=== PATIENT | male | born 1965 | race Caucasian/White ===

== ENCOUNTER 2016-10-08 11:31 | Emergency (ER) | payer SELFPAY ==
[2016-10-08 12:10] LABS: #Basophils 0.1 thou/uL (0.0-0.2); #Eosinphils 0.2 thou/uL (0.0-0.7); #Lymphocytes 2.4 thou/uL (1.20-3.40); #Monocytes 0.6 thou/uL (0.11-0.59); #Neutrophils 5.3 thou/uL (1.40-6.50); %Basophils 1.1 % (0.0-1.0); %Eosinophils 2.5 % (0.0-10.0); %Lymphocytes 27.6 % (21.0-51.0); %Monocytes 6.9 % (0.0-10.0); Hematocrit 47.4 % (42.0-52.0); Mean Platelet Volume 7.8 fL (7.4-10.4); Red Blood Cell (RBC) Count 5.28 mill/uL (4.70-6.10); White Blood Cell (WBC) Count 8.6 thou/uL (4.8-10.8)
[2016-10-08 12:28] LABS: ALT (SGPT) 25 U/L (0-55); AST (SGOT) 19 U/L (5-34); Alkaline Phosphatase 63 U/L (40-150); Anion Gap 15 mmol/L (10-20); BUN (Urea Nitrogen) 13 mg/dL (8.4-25.7); Bilirubin, Total 0.5 mg/dL (0.2-1.2); Calc. Creatinine Clearance 0 mL/min (70-130); Calcium 8.8 mg/dL (7.8-10.44); Carbon Dioxide 21 mmol/L (22-29); Chloride 105 mmol/L (98-107); Estimated GFR-MDRD 78; Globulin 2.9 g/dL (2.4-3.5); Protein, Total 6.8 g/dL (6.0-8.3)
[2016-10-08 12:29] LABS: Troponin I Less than 0.010 ng/mL (< 0.028)
--- NOTE | 2016-10-08 12:30 | RAD ---
PORTABLE AP CHEST: Date: 10-08-16 History: Wheezing. Patient feels lightheaded. FINDINGS: Cardiac silhouette and pulmonary vasculature are within normal limits. Lungs are clear. Osseous st ructures are intact. There is bilateral glenohumeral osteoarthropathy present. IMPRESSION: No acute cardiopulmonary process. POS: [facility]
--- NOTE | 2016-10-08 12:49 | ERRECORD ---
[facility] EMERGENCY RECORD HPI SHORTNESS OF BREATH (12:16 SHAN) CHIEF COMPLAINT: Patient presents for evaluation of shortness of breath, Patient presents for evaluation of for a couple of days. HISTORIAN: History provided by patient, started Lopressor recently. SEVERITY: Maximum severity of symptoms moderate, Currently symptoms are moderate. TIME COURSE: Symptoms are worsening. ASSOCIATED WITH: Associated with dyspnea on exertion. EXACERBATED BY: Patient's condition exacerbated by nothing. RELIEVED BY: Patient's condition relieved by nothing. ROS (12:17 SHAN) CONSTITUTIONAL: Negative constitutional review of systems. EYES: Negative eye review of systems. ENT: Negative ears, nose, throat review of systems. CARDIOVASCULAR: Negative cardiovascular review of systems. RESPIRATORY: Historian reports shortness of breath. GI: Negative gastrointestinal review of systems. MUSCULOSKELETAL: Negative musculoskeletal review of systems. SKIN: Negative skin review of systems. NEUROLOGIC: Negative neurologic review of systems. NOTES: All systems reviewed, negative except as described above. PAST MEDICAL HISTORY (11:45 MSPE) MEDICAL HISTORY: Notes: bilat shoulder pain, Flu vaccine not up to date, Tetanus immunization up to date, Pneumococcal vaccine not up to date, Past medical history includes cardiac history, coronary artery disease, Treated with angioplasty, Past medical history includes history of hypertension. MALE SURGICAL HISTORY: bilateral knee scopes. PSYCHIATRIC HISTORY: No previous psychiatric history. SOCIAL HISTORY: Patient denies alcohol use, Patient denies drug use, Patient currently uses tobacco, smokes cigarettes, Patient smokes 1 pack per day. KNOWN ALLERGIES No Known Drug Allergies CURRENT MEDICATIONS lisinopril: TABLET : Strength - 20 mg : ORAL Patient Dose: 1 tab(s) Oral 2 times a day. (11:42 MSPE) Lopressor: TABLET : Strength - 50 mg : ORAL Patient Dose: unk Oral once a day. (11:42 MSPE) Tylenol-Codeine #3: TABLET : Strength - 300 mg-30 mg : ORAL Patient Dose: Oral As Needed.for shoulder pain. (11:43 &a-1R&a+25V*p+0X*u8434H*c202B*c15G*c2P*p-0X&a-25V&a+1R Name: Cayetano Pedroza : 1965 M51 MedRec: [id number] AcctNum: [id number] Prepared: Marla Oct 08, 2016 13:05 by Interface Page 1 of 3 pMD [facility] EMERGENCY RECORD MSPE) VITAL SIGNS VITAL SIGNS: BP: 140/75, Pulse: 96, Resp: 18, Temp: 99.0 (Oral), Pain: 2, O2 sat: 94 on Room Air, Time: 10/08/2016 11:39. (11:39 MSPE) BP: 126/64, Pulse: 94, Resp: 17, O2 sat: 94 on Room Air, Time: 10/08/2016 12:00. (12:00 MSPE) BP: 152/82, Pulse: 93, Resp: 19, Pain: 2, O2 sat: 94 on Room Air, Time: 10/08/2016 12:44. (12:44 MSPE) PHYSICAL EXAM (12:17 SHAN) CONSTITUTIONAL: Patient afebrile, Pulse normal, Blood pressure normal, Respiratory rate normal, Normal pulse oximetry, Patient appears non toxic, Patient appears pain free, Patient alert and oriented to person, place and time, Nursing notes reviewed. HEAD: Head exam included findings of head atraumatic, normocephalic. EYES: Eye exam included findings of eyelids normal to inspection, Pupils equally round and reactive to light, Extraocular muscles intact. ENT: Pharynx exam normal, Uvula exam normal, Tonsil exam normal. NECK: Neck exam included findings of normal range of motion, Trachea midline. RESPIRATORY CHEST: Diffuse moderate wheezing. CARDIOVASCULAR: Cardiovascular exam included findings of heart rate regular rate and rhythm, Heart sounds normal. ABDOMEN MALE: Abdominal exam included findings of abdomen nontender, Bowel sounds normal. BACK: Back exam normal. UPPER EXTREMITY: Upper extremity exam included findings of inspection normal, Range of motion normal. NEURO: Neuro exam normal. SKIN: Skin exam normal. MEDICATION ADMINISTRATION SUMMARY Drug Name: albuterol sulfate inhalation, Dose Ordered: 2.5 mg, Route: Nebulize, Status: Given, Time: 11:55 10/08/2016, Drug Name: ipratropium 0.5 mg by nebulizer, Dose Ordered: * , Route: Nebulize, Status: Given, Time: 11:55 10/08/2016, Detailed record available in Medication Service section. PROBLEM LIST No recorded problems DIAGNOSIS (12:44 SHAN) FINAL: PRIMARY: ACUTE BRONCHOSPASM, ADDITIONAL: ESSENTIAL PRIMARY HYPERTENSION, type 2 diabetes, new dx. PRESCRIPTION &a-1R&a+25V*p+0X*x6824G*c202B*c15G*c2P*p-0X&a-25V&a+1R Name: Cayetano Pedroza : 1965 M51 MedRec: [id number] AcctNum: [id number] Prepared: WedOct 08, 2016 13:05 by Interface Page 2 of 3 pMD [facility] EMERGENCY RECORD Norvasc: TABLET : 5 mg : ORAL : Quantity: 1 Unit: tab(s) Route: ORAL Schedule: Dispense: 30 Unit: tab(s) May substitute. Refills: No Refills . (12:38 SHAN) NOTES: No Refills. (12:38 SHAN) albuterol sulfate inhalation: HFA AEROSOL WITH ADAPTER (GRAM) : 90 mcg : INHALATION : Quantity: 2 Unit: inhalation Route: INHALATION Schedule: every 4 hours prn Dispense: 1 Unit: units May substitute. Refills: No Refills . (12:38 SALINA) NOTES: No Refills. (12:38 SHAN) metFORMIN: TABLET : 500 mg : ORAL : Quantity: 1 Unit: tab(s) Route: ORAL Schedule: 2 times a day (before meals) Dispense: 60 Unit: tab(s) May substitute. Refills: 2 . (12:40 SALINA) NOTES: No Refills. (12:40 SALINA) DISPOSITION PATIENT: Disposition Type: Discharge, Disposition: *Discharge Home. (12:44 SALINA) Patient left the department. (12:59 MSPE) Meadows: JOEY=MULU Riggins, Merlene DOWNING=MD Bina, Damien &a-1R&a+25V*p+0X*[id number]*c202B*c15G*c2P*p-0X&a-25V&a+1R Name: Cayetano Pedroza : 1965 M51 MedRec: [id number] AcctNum: [id number] Prepared: Marla Oct 08, 2016 13:05 by Interface Page 3 of 3 pMD [facility]TDD
--- NOTE | 2016-10-08 12:55 | PICIS ---
[facility] EMERGENCY RECORD TRIAGE (WedOct 08, 2016 11:37 MSPE) PATIENT: NAME: Cayetano Pedroza, AGE: 51, GENDER: male, : Wed1965, TIME OF GREET: WedOct 08, 2016 11:32, ECODE BILLING MAP: [facility], Zip Code: [address], KG WEIGHT: 96.62, PHONE: , , , PERSON ID: [id number], PCP: Carissa Harrington, /[place]. TRIAGE NOTES: sts "can't catch my breath all day"; feels lightheaded; rt side JACKSON. COMPLAINT: CANT CATCH BREATH. ADMISSION: URGENCY: 3 Urgent, ADMISSION SOURCE: Home, TRANSPORT: CAR, BED: ER -05. PROVIDERS: TRIAGE NURSE: Merlene Riggins RN. KNOWN ALLERGIES No Known Drug Allergies CURRENT MEDICATIONS lisinopril: TABLET : Strength - 20 mg : ORAL Patient Dose: 1 tab(s) Oral 2 times a day. (11:42 MSPE) Lopressor: TABLET : Strength - 50 mg : ORAL Patient Dose: unk Oral once a day. (11:42 MSPE) Tylenol-Codeine #3: TABLET : Strength - 300 mg-30 mg : ORAL Patient Dose: Oral As Needed.for shoulder pain. (11:43 MSPE) VITAL SIGNS VITAL SIGNS: BP: 140/75, Pulse: 96, Resp: 18, Temp: 99.0 (Oral), Pain: 2, O2 sat: 94 on Room Air, Time: 10/08/2016 11:39. (11:39 MSPE) BP: 126/64, Pulse: 94, Resp: 17, O2 sat: 94 on Room Air, Time: 10/08/2016 12:00. (12:00 MSPE) BP: 152/82, Pulse: 93, Resp: 19, Pain: 2, O2 sat: 94 on Room Air, Time: 10/08/2016 12:44. (12:44 MSPE) NURSING ASSESSMENT: RESPIRATORY /CHEST (11:50 MSPE) CONSTITUTIONAL: Patient arrives ambulatory, Gait steady, History obtained from patient, Patient cooperative, Patient alert, Oriented to person, place and time, Skin warm, Skin dry, Skin normal in color. PAIN: c/o slight right side JACKSON. RESPIRATORY/CHEST: Lungs auscultated, Breath sounds with wheezing, to the left upper lobe, to the right upper lobe, Respiratory assessment findings include respiratory effort, mildly labored, Respirations regular, Conversing normally, Associated with cough, dry, Notes: pt reports having difficulty breathing while at work this a.m. Sts he woke up "feeling fine". Also c/o feeling lightheaded. &a-1R&a+25V*p+0X*p0724L*c202B*c15G*c2P*p-0X&a-25V&a+1R Name: Cayetano Pedroza : 1965 M51 MedRec: [id number] AcctNum: [id number] Prepared: Marla Oct 08, 2016 13:11 by Interface Page 1 of 7 pMD [facility] EMERGENCY RECORD NOTES: Notes: reports recent change in medication per his PCP. NURSING PROCEDURE: BEDSIDE RADIOLOGY (12:01 CCRI) BEDSIDE RADIOLOGY: Bedside radiology performed by CC, Portable chest x-ray performed. NURSING PROCEDURE: DISCHARGE NOTE (12:55 MSPE) DISCHARGE: Patient discharged to home, ambulating without assistance, unaccompanied, Summary of Care printed/ provided, Discharge instructions given to patient, Simple or moderate discharge teaching performed, Prescriptions given and instructions on side effects given, Above person(s) verbalized understanding of discharge instructions and follow-up care, Patient treated and evaluated by physician. BELONGINGS: Belongings remain with patient. NURSING PROCEDURE: EKG CHART (11:51 MSPE) EKG: EKG indicated for SOB, 12 lead EKG performed on the left chest. FOLLOW-UP: After procedure, EKG for interpretation given to Dr. Rafael bal. NURSING PROCEDURE: IV IV SITE 1: IV therapy indicated for hydration, IV therapy indicated for medication administration, IV established, to the right hand, using a 20 gauge catheter, in one attempt, IV site prepped with Chloraprep, Saline lock established, Flushed with normal saline (mls): 10, Labs drawn at time of placement, labeled in the presence of the patient and sent to lab. (12:03 MSPE) FOLLOW-UP SITE 1: After procedure, 2x2 dressing applied, IV discontinued, due to patient being discharged, catheter intact. (12:52 MSPE) NURSING PROCEDURE: NURSE NOTES (12:50 MSPE) NURSES NOTES: Notes: Pt feeling better; sts no longer feels lightheaded; BS much more clear to auscultation. ORDER DETAILS Order Name: B type Natriuretic Peptide, Status: Active, Time: 11:45 10/08/2016, User: SALINA, - Ordered for: MD Curran Stanley, - Entered by: MD Curran Stanley - Marla Oct 08, 2016 11:45, - Quantity: 1, Order Name: HEALTH SERVICES ADMINISTRATOR ED, Status: Done, Time: 12:06 10/08/2016, User: JOEY, - Ordered for: MD Curran Stanley, - Entered by: MD Curran Stanley - Marla Oct 08, 2016 11:46, - Quantity: 1, &a-1R&a+25V*p+0X*d4536T*c202B*c15G*c2P*p-0X&a-25V&a+1R Name: Cayetano Pedroza : 1965 M51 MedRec: [id number] AcctNum: [id number] Prepared: WedOct 08, 2016 13:11 by Interface Page 2 of 7 pMD [facility] EMERGENCY RECORD Order Name: CBC with Differential, Status: Active, Time: 11:45 10/08/2016, User: SALINA, - Ordered for: MD Curran Stanley, - Entered by: MD Curran Stanley - Marla Oct 08, 2016 11:45, - Quantity: 1, Order Name: Comprehensive Metabolic Panel, Status: Active, Time: 11:45 10/08/2016, User: SALINA, - Ordered for: MD Curran Stanley, - Entered by: MD Curran Stanley - Marla Oct 08, 2016 11:45, - Quantity: 1, Order Name: EKG 12 Lead in Emergency Room, Status: Active, Time: 11:46 10/08/2016, User: SALINA, - Ordered for: MD Curran Stanley, - Entered by: MD Curran Stanley - Marla Oct 08, 2016 11:46, - Quantity: 1, Order Name: ERRT * Smal Vol Neb Initial Trmt, Status: Active, Time: 11:56 10/08/2016, User: JOEY, - Ordered for: MD Curran Stanley, - Entered by: MULU Riggins Marilyn - [facility] Oct 08, 2016 11:56, - Quantity: 1, Order Name: Troponin - I, Status: Active, Time: 11:49 10/08/2016, User: SALINA, - Ordered for: MD Curran Stanley, - Entered by: MD Curran Stanley [facility] Oct 08, 2016 11:49, - Quantity: 1, Order Name: XR Chest 1 View Portable, Status: Active, Time: 11:46 10/08/2016, User: SALINA, - Ordered for: MD Curran Stanley, - Entered by: MD Curran Stanley [facility] Oct 08, 2016 11:46, - Quantity: 1. MEDICATION ADMINISTRATION SUMMARY Drug Name: albuterol sulfate inhalation, Dose Ordered: 2.5 mg, Route: Nebulize, Status: Given, Time: 11:55 10/08/2016, Drug Name: ipratropium 0.5 mg by nebulizer, Dose Ordered: * , Route: Nebulize, Status: Given, Time: 11:55 10/08/2016, Detailed record available in Medication Service section. MEDICATION SERVICE (11:55 SALINA) albuterol sulfate inhalation: Order: albuterol sulfate inhalation (albuterol sulfate) - Dose: 2.5 mg : Nebulize Ordered by: Damien Curran MD Entered by: Damien Curran MD [facility] Oct 08, 2016 11:47 Documented as given by: Merlene Riggins RN [facility] Oct 08, 2016 11:55 Patient, Medication, Dose, Route and Time verified prior to administration. Site: Medication administered via Hand-held nebulizer, With oxygen, Correct patient, time, route, dose and medication confirmed prior to administration, Patient advised of actions and side-effects prior to &a-1R&a+25V*p+0X*j7335R*c202B*c15G*c2P*p-0X&a-25V&a+1R Name: Cayetano Pedroza : 1965 M51 MedRec: [id number] AcctNum: [id number] Prepared: [facility] Oct 08, 2016 13:11 by Interface Page 3 of 7 pMD [facility] EMERGENCY RECORD administration, Allergies confirmed and medications reviewed prior to administration. ipratropium 0.5 mg by nebulizer: Free Text order: ipratropium 0.5 mg by nebulizer : : Nebulize Ordered by: Damien Curran MD Entered by: Damien Curran MD [facility] Oct 08, 2016 11:48 Documented as given by: Merlene Riggins RN [facility] Oct 08, 2016 11:55 Patient, Medication, Dose, Route and Time verified prior to administration. Site: Medication administered via Hand-held nebulizer, With oxygen, Patient in position of comfort, Side rails up, Cart in lowest position. HPI SHORTNESS OF BREATH (12:16 SHAN) CHIEF COMPLAINT: Patient presents for evaluation of shortness of breath, Patient presents for evaluation of for a couple of days. HISTORIAN: History provided by patient, started Lopressor recently. SEVERITY: Maximum severity of symptoms moderate, Currently symptoms are moderate. TIME COURSE: Symptoms are worsening. ASSOCIATED WITH: Associated with dyspnea on exertion. EXACERBATED BY: Patient's condition exacerbated by nothing. RELIEVED BY: Patient's condition relieved by nothing. ROS (12:17 SHAN) CONSTITUTIONAL: Negative constitutional review of systems. EYES: Negative eye review of systems. ENT: Negative ears, nose, throat review of systems. CARDIOVASCULAR: Negative cardiovascular review of systems. RESPIRATORY: Historian reports shortness of breath. GI: Negative gastrointestinal review of systems. MUSCULOSKELETAL: Negative musculoskeletal review of systems. SKIN: Negative skin review of systems. NEUROLOGIC: Negative neurologic review of systems. NOTES: All systems reviewed, negative except as described above. PAST MEDICAL HISTORY (11:45 MSPE) MEDICAL HISTORY: Notes: bilat shoulder pain, Flu vaccine not up to date, Tetanus immunization up to date, Pneumococcal vaccine not up to date, Past medical history includes cardiac history, coronary artery disease, Treated with angioplasty, Past medical history includes history of hypertension. MALE SURGICAL HISTORY: bilateral knee scopes. PSYCHIATRIC HISTORY: No previous psychiatric history. SOCIAL HISTORY: Patient denies alcohol use, Patient denies drug use, Patient currently uses tobacco, smokes cigarettes, Patient smokes 1 pack per day. &a-1R&a+25V*p+0X*k3575Z*c202B*c15G*c2P*p-0X&a-25V&a+1R Name: Cayetano Pedroza : 1965 M51 MedRec: [id number] AcctNum: [id number] Prepared: WedOct 08, 2016 13:11 by Interface Page 4 of 7 pMD [facility] EMERGENCY RECORD PHYSICAL EXAM (12:17 SHAN) CONSTITUTIONAL: Patient afebrile, Pulse normal, Blood pressure normal, Respiratory rate normal, Normal pulse oximetry, Patient appears non toxic, Patient appears pain free, Patient alert and oriented to person, place and time, Nursing notes reviewed. HEAD: Head exam included findings of head atraumatic, normocephalic. EYES: Eye exam included findings of eyelids normal to inspection, Pupils equally round and reactive to light, Extraocular muscles intact. ENT: Pharynx exam normal, Uvula exam normal, Tonsil exam normal. NECK: Neck exam included findings of normal range of motion, Trachea midline. RESPIRATORY CHEST: Diffuse moderate wheezing. CARDIOVASCULAR: Cardiovascular exam included findings of heart rate regular rate and rhythm, Heart sounds normal. ABDOMEN MALE: Abdominal exam included findings of abdomen nontender, Bowel sounds normal. BACK: Back exam normal. UPPER EXTREMITY: Upper extremity exam included findings of inspection normal, Range of motion normal. NEURO: Neuro exam normal. SKIN: Skin exam normal. EVENTS TRANSFER: Triage to Emergency Emergency Room -05. (WedOct 08, 2016 11:37 MSPE) Removed from Emergency Emergency Room -05. (12:59 MSPE) PROBLEM LIST No recorded problems DIAGNOSIS (12:44 SHAN) FINAL: PRIMARY: ACUTE BRONCHOSPASM, ADDITIONAL: ESSENTIAL PRIMARY HYPERTENSION, type 2 diabetes, new dx. DISPOSITION PATIENT: Disposition Type: Discharge, Disposition: *Discharge Home. (12:44 SHAN) Patient left the department. (12:59 MSPE) INSTRUCTION (12:43 SHAN) DISCHARGE: BRONCHOSPASM (ADULT). FOLLOWUP: [facility], /[facility], [address] [facility] [address], . SPECIAL: 1. stop the Lopressor; tomorrow am start the Norvasc/amlodipine in its place; discuss this change with your physician 2. use the inhaler, 2 puffs, up to four times a day if needed for wheezing &a-1R&a+25V*p+0X*d2349Z*c202B*c15G*c2P*p-0X&a-25V&a+1R Name: Cayetano Pedroza : 1965 M51 MedRec: [id number] AcctNum: [id number] Prepared: WedOct 08, 2016 13:11 by Interface Page 5 of 7 pMD [facility] EMERGENCY RECORD 3. cut out sweets, cut back carbohydrates (especially 'white foods'---bread, potatoes ect) 4. discuss the high glucose with your provider. 5. return if condition worsens. PRESCRIPTION Norvasc: TABLET : 5 mg : ORAL : Quantity: 1 Unit: tab(s) Route: ORAL Schedule: Dispense: 30 Unit: tab(s) May substitute. Refills: No Refills . (12:38 SHAN) NOTES: No Refills. (12:38 SHAN) albuterol sulfate inhalation: HFA AEROSOL WITH ADAPTER (GRAM) : 90 mcg : INHALATION : Quantity: 2 Unit: inhalation Route: INHALATION Schedule: every 4 hours prn Dispense: 1 Unit: units May substitute. Refills: No Refills . (12:38 SHAN) NOTES: No Refills. (12:38 SHAN) metFORMIN: TABLET : 500 mg : ORAL : Quantity: 1 Unit: tab(s) Route: ORAL Schedule: 2 times a day (before meals) Dispense: 60 Unit: tab(s) May substitute. Refills: 2 . (12:40 SHAN) NOTES: No Refills. (12:40 SHAN) IMAGING *DISCHARGE INSTRUCTIONS RECEIPT: Image captured from scanner. (12:58 MSPE) *EKG: Image captured from scanner. (12:58 MSPE) *SUPPLY CHARGE SHEET: Image captured from scanner. (12:59 MSPE) ADMIN (12:44 SHAN) DIGITAL SIGNATURE: MD Curran Stanley. RESULTS LABORATORY: CBC with Differential Collection DT: WedOct 08, 2016 12:06, White Blood Cell (WBC) Count 8.6 thou/uL, Range (4.8-10.8), Red Blood Cell (RBC) Count 5.28 mill/uL, Range (4.70-6.10), Hemoglobin 16.2 g/dL, Range (14.0-18.0), Hematocrit 47.4 %, Range (42.0-52.0), Mean Corpuscular Volume 89.6 fl, Range (80.0-94.0), Mean Corpuscular Hemoglobin 30.7 pg, Range (27.0-31.0), Mean Corpuscular HGB CONC 34.2 g/dL, Range (32.0-36.0), RBC Distribution Width 12.3 %, Range (11.5-14.5), Platelet Count 222 thou/uL, Range (130-400), Mean Platelet Volume 7.8 fL, Range (7.4-10.4), %Neutrophils 62.0 %, Range (42.0-75.0), %Lymphocytes 27.6 %, Range (21.0-51.0), %Monocytes 6.9 %, Range (0.0-10.0), %Eosinophils 2.5 %, Range (0.0-10.0), *%Basophils 1.1 - H %, Range (0.0-1.0), #Neutrophils 5.3 thou/uL, Range (1.40-6.50), &a-1R&a+25V*p+0X*t5951S*c202B*c15G*c2P*p-0X&a-25V&a+1R Name: Cayetano Pedroza : 1965 M51 MedRec: [id number] AcctNum: [id number] Prepared: Maral Oct 08, 2016 13:11 by Interface Page 6 of 7 pMD [facility] EMERGENCY RECORD #Lymphocytes 2.4 thou/uL, Range (1.20-3.40), *#Monocytes 0.6 - H thou/uL, Range (0.11-0.59), #Eosinphils 0.2 thou/uL, Range (0.0-0.7), #Basophils 0.1 thou/uL, Range (0.0-0.2). (12:15 SHAN) Troponin - I Collection DT: WedOct 08, 2016 12:06, Troponin I Less than 0.010 ng/mL, Range (< 0.028), Reference Range , 0.00 - 0.028 ng/mL Negative 0.029 - 0.29 ng/mL , Indeterminate Greater or Equal to 0.3 ng/mL Strongly suggests ID , . (12:34 SHAN) Comprehensive Metabolic Panel Collection DT: WedOct 08, 2016 12:06, Sodium 137 mmol/L, Range (136-145), Potassium 4.0 mmol/L, Range (3.5-5.1), Chloride 105 mmol/L, Range (98-107), *Carbon Dioxide 21 - L mmol/L, Range (22-29), Anion Gap 15 mmol/L, Range (10-20), BUN (Urea Nitrogen) 13 mg/dL, Range (8.4-25.7), Creatinine 1.00 mg/dL, Range (0.7-1.3), Estimated GFR-MDRD 78 , Reference Range for Estimated GFR: Greater than 90, mL/min/1.73 m2 NOTE: The MDRD equation has not been validated for use, with the elderly (over 70 years of age), women, patients with, serious comorbid condition or persons with extremes of body size, muscle, mass, or nutritional status. , *Glucose 259 - H mg/dL, Range (70-105), Calcium 8.8 mg/dL, Range (7.8-10.44), Bilirubin, Total 0.5 mg/dL, Range (0.2-1.2), Protein, Total 6.8 g/dL, Range (6.0-8.3), NOTE: Plasma values are generally 0.3 to 0.5 g/dL higher than serum values, due to the presence of fibrinogen. , Albumin 3.9 g/dL, Range (3.5-5.0), Globulin 2.9 g/dL, Range (2.4-3.5), Alb/Glob Ratio 1.3 g/dL, Range (1.2-2.2), Alkaline Phosphatase 63 U/L, Range (40-150), AST (SGOT) 19 U/L, Range (5-34), ALT (SGPT) 25 U/L, Range (0-55). (12:34 SALINA) B type Natriuretic Peptide Collection DT: WedOct 08, 2016 12:06, B type Natriuretic Peptide Less than 10.0 pg/mL, Range (0-100). (12:43 SALINA) Meadows: GEORGE=FEI [place] MSPE=MULU Riggins, Merlene DOWNING=MD Bina, Damien &a-1R&a+25V*p+0X*a6124B*c202B*c15G*c2P*p-0X&a-25V&a+1R Name: Cayetano Pedroza : 1965 M51 MedRec: [id number] AcctNum: [id number] Prepared: WedOct 08, 2016 13:11 by Interface Page 7 of 7 pMD MTDD
== END 2016-10-08 12:55 | disposition home or self-care (01) ==
LOC: NAV ERS 11:31
DX: J98.01 Acute bronchospasm (principal); I10 Essential (primary) hypertension; E11.9 Type 2 diabetes mellitus without complications; F17.210 Nicotine dependence, cigarettes, uncomplicated
CPT/HCPCS: 71010; 80053; 83880; 84484; 85025; 93005; 94640; J7620

== ENCOUNTER 2017-04-19 10:28 | Emergency (ER) | payer SELFPAY ==
[2017-04-19 11:54] LABS: Chloride 91 mmol/L (98-107)
[2017-04-19 11:56] LABS: Sodium 122 mmol/L (136-145)
[2017-04-19 12:01] LABS: Carbon Dioxide 15 mmol/L (22-29)
[2017-04-19 12:02] LABS: BUN (Urea Nitrogen) 13 mg/dL (8.4-25.7); Calc. Creatinine Clearance 0 mL/min (70-130); Estimated GFR-MDRD 88
[2017-04-19 12:03] LABS: Bilirubin, Total 0.6 mg/dL (0.2-1.2); Calcium 8.4 mg/dL (7.8-10.44); Glucose 503 mg/dL (70-105)
[2017-04-19 12:04] LABS: ALT (SGPT) 21 U/L (8-55); Albumin 3.6 g/dL (3.5-5.0); Alkaline Phosphatase 98 U/L (40-150); Globulin 1.9 g/dL (2.4-3.5); Protein, Total 5.5 g/dL (6.0-8.3)
[2017-04-19 12:05] LABS: AST (SGOT) 14 U/L (5-34)
[2017-04-19 12:11] LABS: #Basophils 0.1 thou/uL (0.0-0.2); #Eosinphils 0.1 thou/uL (0.0-0.7); #Lymphocytes 1.5 thou/uL (1.20-3.40); #Monocytes 1.1 thou/uL (0.11-0.59); %Basophils 0.9 % (0.0-1.0); %Eosinophils 0.9 % (0.0-10.0); %Lymphocytes 10.3 % (21.0-51.0); %Monocytes 7.6 % (0.0-10.0); %Neutrophils 80.3 % (42.0-75.0); Hemoglobin 16.8 g/dL (14.0-18.0); Mean Corpuscular HGB CONC 34.5 g/dL (32.0-36.0); Mean Corpuscular Hemoglobin 29.5 pg (27.0-31.0); Mean Corpuscular Volume 85.5 fl (80.0-94.0); Mean Platelet Volume 10.9 fL (7.4-10.4); Platelet Count 149 thou/uL (130-400); RBC Distribution Width 11.9 % (11.5-14.5); White Blood Cell (WBC) Count 14.9 thou/uL (4.8-10.8)
[2017-04-19] MEDS ORDERED: Ondansetron HCl/PF 4 MG/2 ML Vial ONE (12:20)
[2017-04-19 12:21] LABS: Lipase 211 U/L (8-78)
[2017-04-19] MEDS ORDERED: Sodium Chloride 0.9% 1,000 ML ONE (12:21)
[2017-04-19] MEDS ORDERED: NS 0.9% w/ 20 MEQ KCL 1,000 ML ONE (12:44)
[2017-04-19 12:45] LABS: Bilirubin Negative (Negative); Blood, Urine Negative (Negative); Clarity Clear (Clear); Glucose, Urine (Dipstick) 500 mg/dL (Negative); Leukocyte Negative (Negative); Nitrite Negative (Negative); Protein, Urine (Dipstick) Negative (Neg-Trace); Urobilinogen 0.2 mg/dL (0.2-1.0); pH, Urine 5.5 (5.0-9.0)
[2017-04-19 13:55] LABS: Base Excess -0.9 mEq/L (0 (+/- 2.5))
[2017-04-19 13:56] LABS: Hemoglobin (Hb) 20.6 g/dL (13.1-17.2)
[2017-04-19 14:51] LABS: Chloride 98 mmol/L (98-107); Potassium 3.9 mmol/L (3.5-5.1); Sodium 127 mmol/L (136-145)
[2017-04-19 15:11] LABS: BUN (Urea Nitrogen) 9 mg/dL (8.4-25.7); Calc. Creatinine Clearance 0 mL/min (70-130)
[2017-04-19 15:14] LABS: Calcium 7.8 mg/dL (7.8-10.44); Glucose 311 mg/dL (70-105)
[2017-04-19 15:16] LABS: Estimated GFR-MDRD Greater than 90
[2017-04-19 15:45] LABS: Carbon Dioxide 16 mmol/L (22-29)
[2017-04-19 15:46] LABS: Anion Gap 17 mmol/L (10-20)
[2017-04-20 09:07] LABS: Anion Gap 20 mmol/L (10-20)
== END 2017-04-19 14:45 | disposition short-term general hospital (02) ==
LOC: NAV ERS 10:28
DX: E13.10 Other specified diabetes mellitus with ketoacidosis without coma (principal); F17.210 Nicotine dependence, cigarettes, uncomplicated; I10 Essential (primary) hypertension; Z79.899 Other long term (current) drug therapy; Z79.84 Long term (current) use of oral hypoglycemic drugs
CPT/HCPCS: 36416; 80053; 81003; 82805; 83605; 83690; 85025; 96361; 96374; J2405; J7050

== ENCOUNTER 2017-05-28 19:08 | Emergency (ER) | payer OTHER, SELFPAY ==
[2017-05-28] MEDS ORDERED: Acetaminophen/Codeine 30-300mg Tablet ONE ×2 (19:48→19:51)
== END 2017-05-28 19:52 | disposition home or self-care (01) ==
LOC: NAV ERS 19:08
DX: M75.102 Unspecified rotator cuff tear or rupture of left shoulder, not specified as traumatic (principal); E11.9 Type 2 diabetes mellitus without complications; I25.10 Atherosclerotic heart disease of native coronary artery without angina pectoris; I10 Essential (primary) hypertension; F17.210 Nicotine dependence, cigarettes, uncomplicated; Z79.84 Long term (current) use of oral hypoglycemic drugs; Z79.899 Other long term (current) drug therapy
CPT/HCPCS: 99283

== ENCOUNTER 2018-05-01 11:55 | Emergency (ER) | payer OTHER, SELFPAY ==
[2018-05-01] MEDS ORDERED: Ondansetron ODT 4 MG TAB ONE (12:17)
[2018-05-01 12:52] LABS: Bilirubin Negative (Negative); Blood, Urine Negative (Negative); Clarity Clear (Clear); Glucose, Urine (Dipstick) 500 mg/dL (Negative); Leukocyte Negative (Negative); Nitrite Negative (Negative); Protein, Urine (Dipstick) Negative (Neg-Trace); Urobilinogen 0.2 mg/dL (0.2-1.0)
[2018-05-01] MEDS ORDERED: Sodium Chloride 0.9% 1,000 ML ONE (12:52)
[2018-05-01] MEDS ORDERED: Pantoprazole 40 MG VIAL ONE (12:52)
[2018-05-01 12:57] LABS: ALT (SGPT) 12 U/L (8-55); AST (SGOT) 12 U/L (5-34); Albumin 3.6 g/dL (3.5-5.0); Alkaline Phosphatase 89 U/L (40-150); Anion Gap 24 mmol/L (10-20); BUN (Urea Nitrogen) 11 mg/dL (8.4-25.7); Bilirubin, Total 0.6 mg/dL (0.2-1.2); Calc. Creatinine Clearance 0 mL/min (70-130); Carbon Dioxide 11 mmol/L (22-29); Chloride 97 mmol/L (98-107); Estimated GFR-MDRD 83; Globulin 3.9 g/dL (2.4-3.5); Glucose 408 mg/dL (70-105); Lipase 73 U/L (8-78); Protein, Total 7.5 g/dL (6.0-8.3); Sodium 128 mmol/L (136-145)
[2018-05-01 12:58] LABS: CKMB 0.7 ng/mL (0-6.6); Troponin I Less than 0.010 ng/mL (< 0.028)
[2018-05-01 13:04] LABS: #Basophils 0.1 thou/uL (0.0-0.2); #Eosinphils 0.1 thou/uL (0.0-0.7); #Lymphocytes 1.5 thou/uL (1.20-3.40); #Monocytes 0.8 thou/uL (0.11-0.59); #Neutrophils 8.9 thou/uL (1.40-6.50); %Basophils 0.8 % (0.0-1.0); %Eosinophils 1.1 % (0.0-10.0); %Lymphocytes 13.4 % (21.0-51.0); %Monocytes 7.1 % (0.0-10.0); %Neutrophils 77.6 % (42.0-75.0); Hemoglobin 12.8 g/dL (14.0-18.0); Mean Corpuscular HGB CONC 35.5 g/dL (32.0-36.0); Mean Corpuscular Hemoglobin 29.9 pg (27.0-31.0); Mean Corpuscular Volume 84.3 fL (78.0-98.0); Mean Platelet Volume 7.5 fL (7.4-10.4); Platelet Count 212 thou/uL (130-400); RBC Distribution Width 12.7 % (11.5-14.5); Red Blood Cell (RBC) Count 4.27 mill/uL (4.70-6.10); White Blood Cell (WBC) Count 11.5 thou/uL (4.8-10.8)
[2018-05-01 13:28] LABS: Base Excess 1.1 mEq/L (-2.0 to +3.0); pH (venous) 7.37 (7.32-7.43)
[2018-05-01 13:29] LABS: Hemoglobin (Hb) 13.8 g/dL (13.1-17.2)
[2018-05-01] MEDS ORDERED: Insulin Regular 300 UNITS/3 ML VIAL ONE (14:33)
[2018-05-01] MEDS ORDERED: Acetaminophen 500 MG TAB ONE (14:33)
[2018-05-01 15:25] LABS: Anion Gap 23 mmol/L (10-20); BUN (Urea Nitrogen) 10 mg/dL (8.4-25.7); Calc. Creatinine Clearance 0 mL/min (70-130); Calcium 8.1 mg/dL (7.8-10.44); Chloride 104 mmol/L (98-107); Estimated GFR-MDRD Greater than 90; Glucose 192 mg/dL (70-105); Potassium 3.6 mmol/L (3.5-5.1); Sodium 132 mmol/L (136-145)
--- NOTE | 2018-05-01 15:31 | RAD ---
ABDOMEN TWO VIEWS CHEST ONE VIEW: History: 53-year-old male with history of left lower quadrant pain for two days. FINDINGS: No significant acute intrathoracic disease. There is some gas and fecal material in the colon. No magdalena dence of large or small bowel obstruction. No evidence for free intraperitoneal air. No overt calculu s. IMPRESSION: Unremarkable abdomen two views, chest one view. POS: [facility]
[2018-05-01 15:40] LABS: Carbon Dioxide 10 mmol/L (22-29)
== END 2018-05-01 16:15 | disposition home or self-care (01) ==
LOC: NAV ERS 11:55
DX: E10.10 Type 1 diabetes mellitus with ketoacidosis without coma (principal); K59.00 Constipation, unspecified; I10 Essential (primary) hypertension; I25.10 Atherosclerotic heart disease of native coronary artery without angina pectoris; F17.210 Nicotine dependence, cigarettes, uncomplicated; Z79.899 Other long term (current) drug therapy
CPT/HCPCS: 36415; 36416; 74022; 80053; 81003; 82010; 82150; 82553; 82805; 83690; 84484; 85025; 93005; 96361; 96374; 96375; C9113; J1815; J7050; Q0162

== ENCOUNTER 2018-06-28 15:03 | Emergency (ER) | payer SELFPAY | END 2018-06-28 15:44 | disposition home or self-care (01) | LOC: NAV ERS 15:03 | DX: K29.70 Gastritis, unspecified, without bleeding (principal); E10.9 Type 1 diabetes mellitus without complications; I25.10 Atherosclerotic heart disease of native coronary artery without angina pectoris; I10 Essential (primary) hypertension; F17.210 Nicotine dependence, cigarettes, uncomplicated; Z79.4 Long term (current) use of insulin; Z79.899 Other long term (current) drug therapy | CPT/HCPCS: 36416; 99283 ==

== ENCOUNTER 2021-04-19 19:24 | Emergency (ER) | payer OTHER ==
[2021-04-19] MEDS ORDERED: HYDROcodone/Acetaminophen 5/325 mg Tablet ONE (20:00)
== END 2021-04-19 20:40 | disposition home or self-care (01) ==
LOC: NAV ERS 19:24
DX: M79.671 Pain in right foot (principal); I25.10 Atherosclerotic heart disease of native coronary artery without angina pectoris; E10.9 Type 1 diabetes mellitus without complications; E78.5 Hyperlipidemia, unspecified; I10 Essential (primary) hypertension; Z79.84 Long term (current) use of oral hypoglycemic drugs; Z87.891 Personal history of nicotine dependence; Z79.899 Other long term (current) drug therapy

== ENCOUNTER 2021-08-30 09:55 | Emergency (ER) | payer OTHER ==
[2021-08-30] MEDS ORDERED: Sodium Chloride 0.9% 1,000 ML ONE (10:16)
[2021-08-30] MEDS ORDERED: Morphine 4 MG/ML VIAL ONE ×2 (10:16→12:38)
[2021-08-30] MEDS ORDERED: Ondansetron PF 4 MG/2 ML Vial ONE ×3 (10:16→15:54)
[2021-08-30 10:33] LABS: Mean Corpuscular HGB CONC 36.6 g/dL (32.0-36.0); Mean Corpuscular Hemoglobin 33.1 pg (27.0-31.0); Mean Corpuscular Volume 90.5 fL (78.0-98.0); Mean Platelet Volume 11.1 fL (7.4-10.4); Platelet Count 254 thou/uL (130-400); RBC Distribution Width 12.7 % (11.5-14.5); Red Blood Cell (RBC) Count 5.51 mill/uL (4.70-6.10); White Blood Cell (WBC) Count 14.9 thou/uL (4.8-10.8)
[2021-08-30 10:43] LABS: Albumin 3.7 g/dL (3.5-5.0); Alkaline Phosphatase 87 U/L (40-110); Anion Gap 15 mmol/L (10-20); BUN (Urea Nitrogen) 11 mg/dL (8.4-25.7); Calc. Creatinine Clearance 0 mL/min (70-130); Calcium 9.5 mg/dL (7.8-10.44); Carbon Dioxide 18 mmol/L (22-29); Chloride 94 mmol/L (98-107); Globulin 6.4 g/dL (2.4-3.5); Glucose 396 mg/dL (70-105); Lipase 174 U/L (8-78); Potassium 4.2 mmol/L (3.5-5.1); Protein, Total 10.1 g/dL (6.0-8.3); Sodium 123 mmol/L (136-145)
[2021-08-30 10:47] LABS: Hemoglobin 16.6 g/dL (14.0-18.0)
[2021-08-30 10:52] LABS: Manual Diff?? YES; Neutrophil 76 % (42-75)
[2021-08-30 10:53] LABS: Band 1 % (5-11); Eosinophils 1 % (0-10); Lymphocytes 18 % (21-51); Monocytes 4 % (0-10); RBC Morphology Normal
[2021-08-30 10:54] LABS: MDiff Complete? YES
[2021-08-30] MEDS ORDERED: Sodium Chloride 0.9% 2,000 ML ONE (11:05)
[2021-08-30] MEDS ORDERED: Piperacillin/Tazobactam 4.5 GM VIAL ONE ×2 (11:05→16:39)
[2021-08-30 11:33] LABS: AST (SGOT) 16 U/L (5-34)
[2021-08-30 11:34] LABS: ALT (SGPT) 13 U/L (8-55); Bilirubin, Total 0.4 mg/dL (0.2-1.2)
[2021-08-30 12:54] LABS: SARS-CoV-2 NAA Rapid Test Not Detected (NotDetected)
[2021-08-30 13:04] LABS: Bilirubin Negative (Negative); Blood, Urine Negative (Negative); Clarity Clear (Clear); Glucose, Urine (Dipstick) 500 mg/dL (Negative); Ketone, Urine 40 mg/dL (Negative); Leukocyte Negative (Negative); Nitrite Negative (Negative); Protein, Urine (Dipstick) Negative (Neg-Trace); Specific Gravity, Urine 1.015 (1.005-1.030); Urobilinogen 0.2 mg/dL (Less than 2); pH, Urine 5.5 (5.0-9.0)
[2021-08-30] MEDS ORDERED: Sodium Chloride 0.9% 100 ML ONE (16:40)
== END 2021-08-30 17:06 | disposition short-term general hospital (02) ==
LOC: NAV ERS 09:55
DX: A41.9 Sepsis, unspecified organism (principal); K80.20 Calculus of gallbladder without cholecystitis without obstruction; K85.90 Acute pancreatitis without necrosis or infection, unspecified; I10 Essential (primary) hypertension; I25.10 Atherosclerotic heart disease of native coronary artery without angina pectoris; E10.9 Type 1 diabetes mellitus without complications; E78.5 Hyperlipidemia, unspecified; F17.210 Nicotine dependence, cigarettes, uncomplicated; M77.9 Enthesopathy, unspecified; Z20.822 Contact with and (suspected) exposure to COVID-19; Z79.84 Long term (current) use of oral hypoglycemic drugs; Z79.899 Other long term (current) drug therapy
CPT/HCPCS: 36416; 71045; 74177; 80053; 81003; 83605; 83690; 85025; 87040; 96365; 96375; 96376; J2270; J2405; J2543; J7050; U0002

== ENCOUNTER 2022-05-10 11:10 | Emergency (ER) | payer OTHER | END 2022-05-10 12:21 | disposition home or self-care (01) | LOC: NAV ERS 11:10 | DX: S73.101A Unspecified sprain of right hip, initial encounter (principal); I25.10 Atherosclerotic heart disease of native coronary artery without angina pectoris; E10.9 Type 1 diabetes mellitus without complications; E78.5 Hyperlipidemia, unspecified; I10 Essential (primary) hypertension; F17.210 Nicotine dependence, cigarettes, uncomplicated; X58.XXXA Exposure to other specified factors, initial encounter ==

== ENCOUNTER 2023-04-29 07:40 | Emergency (ER) | payer OTHER ==
[2023-04-29] MEDS ORDERED: Tetracaine 0.5% PF 4 ML BOT ONE (08:19)
[2023-04-29] MEDS ORDERED: Fluorescein Opthalmic Strip ONE (08:19)
== END 2023-04-29 08:30 | disposition home or self-care (01) ==
LOC: NAV ERS 07:40
DX: S05.01XA Injury of conjunctiva and corneal abrasion without foreign body, right eye, initial encounter (principal); I25.10 Atherosclerotic heart disease of native coronary artery without angina pectoris; E11.9 Type 2 diabetes mellitus without complications; E78.5 Hyperlipidemia, unspecified; I10 Essential (primary) hypertension; F17.210 Nicotine dependence, cigarettes, uncomplicated; W55.03XA Scratched by cat, initial encounter; Z79.899 Other long term (current) drug therapy
CPT/HCPCS: 99283

== ENCOUNTER 2023-10-25 20:32 | Emergency (ER) | payer OTHER ==
[2023-10-25] MEDS ORDERED: Ketorolac Tromethamine 30 MG (1 mL) VIAL ONE (23:46)
[2023-10-25] MEDS ORDERED: Orphenadrine Citrate 60 MG/2 ML VIAL ONE (23:46)
== END 2023-10-26 00:26 | disposition home or self-care (01) ==
LOC: NAV ERS 20:32
DX: S73.102A Unspecified sprain of left hip, initial encounter (principal); S83.92XA Sprain of unspecified site of left knee, initial encounter; S76.912A Strain of unspecified muscles, fascia and tendons at thigh level, left thigh, initial encounter; F17.210 Nicotine dependence, cigarettes, uncomplicated; E10.9 Type 1 diabetes mellitus without complications; E78.5 Hyperlipidemia, unspecified; I10 Essential (primary) hypertension; I25.10 Atherosclerotic heart disease of native coronary artery without angina pectoris; Z79.82 Long term (current) use of aspirin; Z79.899 Other long term (current) drug therapy; X50.1XXA Overexertion from prolonged static or awkward postures, initial encounter
CPT/HCPCS: 72192; 96372; J1885; J2360

== ENCOUNTER 2024-02-23 15:36 | Emergency (ER) | payer OTHER | END 2024-02-23 16:35 | disposition home or self-care (01) | LOC: NAV ERS 15:36 | DX: H00.015 Hordeolum externum left lower eyelid (principal); E10.9 Type 1 diabetes mellitus without complications; I10 Essential (primary) hypertension; F17.210 Nicotine dependence, cigarettes, uncomplicated | CPT/HCPCS: 99282 ==

== ENCOUNTER 2024-04-14 14:35 | Emergency (ER) | payer OTHER, SELFPAY ==
[2024-04-14] MEDS ORDERED: Tetracaine 0.5% PF 4 ML BOT ONE (15:48)
[2024-04-14] MEDS ORDERED: Fluorescein Opthalmic Strip ONE (15:48)
== END 2024-04-14 16:13 | disposition home or self-care (01) ==
LOC: NAV ERS 14:35
DX: H00.12 Chalazion right lower eyelid (principal); E78.5 Hyperlipidemia, unspecified; E10.9 Type 1 diabetes mellitus without complications; I10 Essential (primary) hypertension; F17.210 Nicotine dependence, cigarettes, uncomplicated; Z79.82 Long term (current) use of aspirin; Z79.899 Other long term (current) drug therapy
CPT/HCPCS: 99283

== ENCOUNTER 2025-07-27 13:47 | Emergency (ER) | payer OTHER | END 2025-07-27 15:02 | disposition home or self-care (01) | LOC: NAV ERS 13:47 | DX: J20.9 Acute bronchitis, unspecified (principal); B34.9 Viral infection, unspecified; I10 Essential (primary) hypertension; E10.9 Type 1 diabetes mellitus without complications; E78.5 Hyperlipidemia, unspecified; F17.210 Nicotine dependence, cigarettes, uncomplicated; Z79.899 Other long term (current) drug therapy; Z79.82 Long term (current) use of aspirin | CPT/HCPCS: 71046 ==